=== PATIENT | male | born 1955 | race African-American/Black ===

== ENCOUNTER 2019-12-15 11:35 | Inpatient (IN) | payer MEDICARE, BC ==
[~2019-12-15] VITALS: Ht 182.9 cm; Wt 70.1 kg
[2019-12-15] MEDS: InsuLIN REG 1unit/0.01ml Soln (100units/ml) SC SCH
[2019-12-15] MEDS: ACCU-CHEK COMFORT CURVE STRIP VI SCH
[2019-12-15 12:44] LABS: Basophils # (auto) 0 10 ^3/uL (0-0.2); Eosinophils # (auto) 0 10 ^3/uL (0-0.8); Eosinophils % (auto) 0.5 % (0.0-7.0); Lymphocytes # (auto) 0.8 10 ^3/uL (0.4-5.4); Mean Corpuscular Hemoglobin 31.4 pg (28.0-32.0); Mean Corpuscular Hgb Conc. 31.4 g/dL (32.0-36.0); Monocytes # (auto) 0.2 10 ^3/uL (0-1.3)
[2019-12-15] MEDS ORDERED: SODIUM CHLORIDE 0.9% 1,000 ML IVB ONE (12:45)
[2019-12-15 12:46] LABS: Basophils % (auto) 0.3 % (0.0-2.0); Hematocrit 25.4 % (41.0-53.0); Lymphocytes % (auto) 10.2 % (10.0-50.0); Mean Corpuscular Volume 99.9 fL (80.0-100.0); Monocytes % (auto) 2.9 % (0.0-12.0); Neutrophils # (auto) 6.4 10 ^3/uL (1.6-8.6); Neutrophils % (auto) 86.1 % (37.0-80.0); Red Blood Cells 2.54 10^6/uL (4.5-5.90); White Blood Cell 7.4 10^3/uL (4.4-10.8)
[2019-12-15 12:50] LABS: Red Cell Distribution Width 24.6 % (11.8-14.3)
[2019-12-15 12:59] LABS: INR 2.04 (0.9-1.15); Partial Thromboplastin Time 42.4 sec (23.0-31.2)
[2019-12-15 13:04] LABS: Albumin 1.5 g/dL (3.4-5.0); Anion Gap 10 (5-15); Blood Urea Nitrogen 39 mg/dL (7-18); Carbon Dioxide 21 mmol/L (21-32); Chloride 120 mmol/L (98-107); Glucose 369 mg/dL (74-106); Magnesium 2.1 mg/dL (1.6-2.6); Potassium 3.8 mmol/L (3.5-5.1); Sodium 151 mmol/L (136-145)
[2019-12-15 13:08] LABS: Alanine Aminotransferase 47 U/L (16-61); Alkaline Phosphatase 643 U/L (45-117); Aspartate Aminotransferase 69 U/L (15-37); BUN/Creatinine Ratio 21.4; Bilirubin, Total 2.6 mg/dL (0.2-1.0); GFR African American 48 mL/min; GFR Non-African American 40 mL/min
[2019-12-15 13:24] LABS: Platelet Count (auto) 54 10^3/uL (140-450)
[2019-12-15 13:53] LABS: Urine Bacteria NONE SEEN /hpf (None Seen); Urine Blood 2+ /uL (Negative); Urine Hyaline Cast MOD /lpf (0 - 2); Urine Mucus FEW (None Seen); Urine WBC 16 /hpf (0 - 3)
[2019-12-15] MEDS ORDERED: NITROGLYCERIN 0.4 MG SL TAB SL PRN (15:45)
[2019-12-15] MEDS: SOD CHL 0.45% 1,000 ML IV SCH (16:45)
[2019-12-15] MEDS ORDERED: cefTRIAXone 1GM/50ML D5W 50 ML IV ONE (16:45)
[2019-12-15] MEDS ORDERED: FAMOTIDINE (10MG/ML) 2ML VL IV SCH (16:45)
[2019-12-15] MEDS ORDERED: DEXTROSE (50%) 50ML SYRG IV PRN (16:45)
[2019-12-15] MEDS: HYDROmorphone HCL 2 MG/ML VL IV PRN (19:36)
--- NOTE | 2019-12-15 23:03 | NUR ---
Telemetry admit from ER JUDITMATIAS admitted to Telemetry unit after SBAR received. Patient oriented to Joie Villagomez, primary RN, unit, room, bed, and unit policies regarding patient care and visiting hours. Patient now on continuous telemetry monitoring, tele box #70 and telemetry reading on arrival to unit is NSR 68. Patient placed on bedside oxygen, weighed by bedscale and encouraged to call if they need something. All questions and concerns addressed, patient verbalized understanding. Note:
[2019-12-15] MEDS: METOPROLOL TARTRATE 50 MG TAB PO SCH (23:36)
[2019-12-15] MEDS: MIRTAZAPINE 30 MG TAB PO SCH (23:36)
[2019-12-16] MEDS: ACCU-CHEK COMFORT CURVE STRIP VI SCH ×3 (00:01→08:15)
[2019-12-16] MEDS ORDERED: RIV20T PO (00:41)
[2019-12-16] MEDS ORDERED: SPIR25TA88 PO (00:41)
[2019-12-16] MEDS ORDERED: OXY5T PO (00:41)
[2019-12-16] MEDS ORDERED: SENN1TAB14 PO (00:41)
[2019-12-16] MEDS ORDERED: METO-159 PO (00:41)
[2019-12-16] MEDS ORDERED: OXY20CRT PO (00:41)
[2019-12-16] MEDS ORDERED: FURO1TAB33 PO (00:41)
[2019-12-16] MEDS ORDERED: ONDA-144 PO (00:41)
[2019-12-16] MEDS ORDERED: PANT40TA2 PO (00:41)
[2019-12-16] MEDS: SOD CHL 0.45% 1,000 ML IV SCH ×2 (00:45→08:45)
[2019-12-16] MEDS: InsuLIN REG 1unit/0.01ml Soln (100units/ml) SC SCH ×3 (04:00→08:15)
[2019-12-16 05:00] VITALS: BP 151/82
--- NOTE | 2019-12-16 06:25 | NUR ---
ZANDRA CALLED;UPDATED HER ON PATIENT'S STATUS; SHE WILL BE CALLING BACK AROUND 1 PM.
[2019-12-16 06:35] LABS: Basophils # (auto) 0 10 ^3/uL (0-0.2); Eosinophils # (auto) 0.2 10 ^3/uL (0-0.8); Monocytes # (auto) 0.3 10 ^3/uL (0-1.3); Neutrophils # (auto) 4.7 10 ^3/uL (1.6-8.6)
[2019-12-16 06:39] LABS: Eosinophils % (auto) 2.4 % (0.0-7.0); Hemoglobin 8.6 g/dL (13.5-17.5); Lymphocytes # (auto) 1.2 10 ^3/uL (0.4-5.4); Lymphocytes % (auto) 18.4 % (10.0-50.0); Mean Corpuscular Hemoglobin 31.7 pg (28.0-32.0); Mean Corpuscular Hgb Conc. 33.1 g/dL (32.0-36.0); Mean Corpuscular Volume 95.8 fL (80.0-100.0); Monocytes % (auto) 5.1 % (0.0-12.0); Neutrophils % (auto) 74.1 % (37.0-80.0); Nucleated Red Blood Cells % 1.1 %; Platelet Count (auto) 55 10^3/uL (140-450); Red Blood Cells 2.72 10^6/uL (4.5-5.90); White Blood Cell 6.3 10^3/uL (4.4-10.8)
[2019-12-16 06:42] LABS: Red Cell Distribution Width 24.1 % (11.8-14.3)
[2019-12-16 07:00] LABS: Albumin 1.8 g/dL (3.4-5.0); BUN/Creatinine Ratio 21.9; Bilirubin, Total 3.2 mg/dL (0.2-1.0); Calcium 7.7 mg/dL (8.5-10.1); Total Protein 5.4 g/dL (6.4-8.2)
[2019-12-16] MEDS: PANTOPRAZOLE 40 MG TAB PO SCH ×2 (07:10→09:20)
--- NOTE | 2019-12-16 07:20 | NUR ---
Opening Shift Note Assuming care of patient at this time. Patient is awake and alert. Patient denies pain. Patient shows no signs or symptoms of distress or shortness of breath. Bed is locked and lowered with side rails up x2. Instructed patient on the plan of care for today and to call for assistance as needed. Call light within reach. Will continue to round hourly and as needed.
[2019-12-16 07:23] LABS: Potassium 2.7 mmol/L (3.5-5.1)
--- NOTE | 2019-12-16 07:28 | NUR ---
Page to On-Call Hospitalist Page to regional geodetic advisor hospitalist regarding patient's critical potassium. Awaiting callback.
[2019-12-16] MEDS: cefTRIAXone 1GM/50ML D5W 50 ML IV SCH (09:20)
[2019-12-16 09:24] VITALS: BP 151/81
[2019-12-16] MEDS: oxyCODONE ER 20 MG TAB PO SCH ×3 (09:26→21:22)
[2019-12-16] MEDS: METOPROLOL TARTRATE 50 MG TAB PO SCH ×2 (09:41→21:22)
--- NOTE | 2019-12-16 09:42 | NUR ---
Call from Noreen, , called at this time. Updated on patient's status.
[2019-12-16] MEDS ORDERED: POTASSIUM CHL 20 Meq TABLET PO ONE (11:30)
[2019-12-16] MEDS: SOD CHL 0.45% WITH 20MEQ KCL 1,000 ML IV SCH ×2 (12:23→19:30)
[2019-12-16 12:39] VITALS: BP 150/89
--- NOTE | 2019-12-16 13:35 | NUR ---
Dr. Herrera call Spoke with Dr. Herrera at this time. Notified MD of patient's ammonia level, also notified him of patient's wanting to receive a phone call in order to discuss plan of care. MD states he will call and update .
--- NOTE | 2019-12-16 13:55 | NUR ---
Spoke to Dr. Herrera Call from Dr. Herrera at this time. Dr. Herrera has just finished speaking with on the phone. Dr. Herrera has told to call this RN and give information on oncology doctor in order to discuss care. Will await 's phone call and input number in a note.
--- NOTE | 2019-12-16 13:58 | NUR ---
Oncology/PCP information Spoke with Noreen, , at this time. Noreen states she has just spoken with Dr. Herrera on the phone, is calling to give information on patient's oncology and pcp. [facility] Dr. Car Almanzar Aspen Chong-PCP Dr. Sanford Trejo
--- NOTE | 2019-12-16 16:00 | NUR ---
Visitation Dr. Herrera states that he offered to have patient's visit but declined. Patient's is now calling asking to visit patient tomorrow. Notified to call in the morning to verify with MD and RN to see if she would be allowed to come and what time. verbalized understanding.
[2019-12-16 17:00] VITALS: BP 137/70
[2019-12-16] MEDS: RIVAROXABAN 20 MG TAB PO SCH (18:05)
--- NOTE | 2019-12-16 18:57 | NUR ---
Closing Shift Note Patient resting in bed. No distress noted. Will endorse care to the roofing superintendent RN.
--- NOTE | 2019-12-16 19:03 | NUR ---
Opening Shift Note Assumed care of patient, awake and alert, on phone with . No S/S of distress/SOB or pain. Bed in lowest locked position, side rails up x 2, call light within reach, bed alarm on. Instructed on POC and to call for assist PRN, will continue to monitor for changes Q1hr and PRN.
--- NOTE | 2019-12-16 21:00 | NUR ---
MD Marvin at nurse's station, MD aware of 's request to speak to MD prior to MD speaking to patient. Will continue care.
[2019-12-16] MEDS: MIRTAZAPINE 30 MG TAB PO SCH (21:23)
[2019-12-16 22:00] VITALS: BP 138/78
[2019-12-16] MEDS ORDERED: LORazepam 2MG/ML-1ML VIAL IV PRN (22:15)
[2019-12-17] MEDS: SOD CHL 0.45% WITH 20MEQ KCL 1,000 ML IV SCH ×3 (03:07→23:33)
[2019-12-17 05:00] VITALS: BP 146/86
--- NOTE | 2019-12-17 07:00 | NUR ---
Patient lying in bed, awake and alert. No s/s of distress. Call light within reach. Will endorse care to dayshift RN.
[2019-12-17 09:00] VITALS: BP 144/88
[2019-12-17] MEDS: oxyCODONE ER 20 MG TAB PO SCH ×2 (09:31→22:12)
[2019-12-17] MEDS: METOPROLOL TARTRATE 50 MG TAB PO SCH ×2 (09:32→22:11)
[2019-12-17] MEDS: cefTRIAXone 1GM/50ML D5W 50 ML IV SCH (09:32)
[2019-12-17] MEDS: PANTOPRAZOLE 40 MG TAB PO SCH (09:32)
--- NOTE | 2019-12-17 10:00 | NUR ---
was at bedside with patient and . The told that patient usually takes lasix and aldactone at home. put in the orders for patient to start it here , and specifically told me not to give them today to start both tomorrow morning. Pharmacy notified for the medications to start tomorrow morning.
[2019-12-17] MEDS ORDERED: ONDANSETRON HCL 4 MG/2 ML VIAL IV PRN (10:30)
[2019-12-17] MEDS ORDERED: SPIRONOLACTONE 25 MG TAB PO ONE (10:45)
[2019-12-17] MEDS ORDERED: FUROSEMIDE 20 MG TAB PO ONE (10:45)
[2019-12-17 13:00] VITALS: BP 150/80
--- NOTE | 2019-12-17 15:21 | NUR ---
EEG-ELECTROENCEPHALOGRAM COMPLETED AT BED SIDE @ 1507.
[2019-12-17 17:00] VITALS: BP 149/79
[2019-12-17] MEDS: RIVAROXABAN 20 MG TAB PO SCH (18:34)
[2019-12-17 18:38] LABS: Basophils # (auto) 0 10 ^3/uL (0-0.2); Eosinophils # (auto) 0.1 10 ^3/uL (0-0.8); Hemoglobin 8.3 g/dL (13.5-17.5); Lymphocytes # (auto) 1.2 10 ^3/uL (0.4-5.4); Monocytes # (auto) 0.3 10 ^3/uL (0-1.3)
[2019-12-17 18:40] LABS: Basophils % (auto) 0.6 % (0.0-2.0); Eosinophils % (auto) 3.6 % (0.0-7.0); Hematocrit 24.7 % (41.0-53.0); Lymphocytes % (auto) 33.1 % (10.0-50.0); Mean Corpuscular Hgb Conc. 33.5 g/dL (32.0-36.0); Mean Corpuscular Volume 95.4 fL (80.0-100.0); Monocytes % (auto) 8.8 % (0.0-12.0); Neutrophils # (auto) 1.9 10 ^3/uL (1.6-8.6); Neutrophils % (auto) 53.9 % (37.0-80.0); Nucleated Red Blood Cells % 1.8 %; Platelet Count (auto) 74 10^3/uL (140-450); Red Blood Cells 2.59 10^6/uL (4.5-5.90); White Blood Cell 3.6 10^3/uL (4.4-10.8)
[2019-12-17 18:43] LABS: Albumin 1.6 g/dL (3.4-5.0); Calcium 7.3 mg/dL (8.5-10.1); Potassium 3.8 mmol/L (3.5-5.1)
[2019-12-17 18:47] LABS: BUN/Creatinine Ratio 22.6; Bilirubin, Total 3.4 mg/dL (0.2-1.0); Red Cell Distribution Width 24.9 % (11.8-14.3); Total Protein 5.2 g/dL (6.4-8.2)
--- NOTE | 2019-12-17 19:30 | NUR ---
Opening Shift Note Assumed care of patient after receiving report. Patient is awake and alert with no S/S of distress/SOB or pain. Call light within reach, bed in lowest locked position x2 side rails up for safety. Instructed on POC and to call for assist PRN, will continue to monitor for changes Q1hr and PRN.
[2019-12-17 22:00] VITALS: BP 144/84
[2019-12-17] MEDS: MIRTAZAPINE 30 MG TAB PO SCH (22:12)
[2019-12-18 05:00] VITALS: BP 159/88
[2019-12-18] MEDS: SOD CHL 0.45% WITH 20MEQ KCL 1,000 ML IV SCH ×2 (05:15→11:30)
--- NOTE | 2019-12-18 05:33 | NUR ---
Scheduled 03:30 IVF fluid given at this time. Held at scheduled time due to current bag still running.
--- NOTE | 2019-12-18 06:03 | NUR ---
BP reassessed was BP 159/88 HR 68. Reassessed by RN BP 142/79 and HR 65.
[2019-12-18 06:05] VITALS: BP 142/79
[2019-12-18 06:09] LABS: Basophils # (auto) 0 10 ^3/uL (0-0.2); Basophils % (auto) 0.7 % (0.0-2.0); Eosinophils # (auto) 0.1 10 ^3/uL (0-0.8); Eosinophils % (auto) 4.6 % (0.0-7.0); Hematocrit 25.3 % (41.0-53.0); Hemoglobin 8.4 g/dL (13.5-17.5); Lymphocytes % (auto) 34.3 % (10.0-50.0); Mean Corpuscular Hemoglobin 32.2 pg (28.0-32.0); Mean Corpuscular Hgb Conc. 33.3 g/dL (32.0-36.0); Mean Corpuscular Volume 96.7 fL (80.0-100.0); Monocytes # (auto) 0.4 10 ^3/uL (0-1.3); Monocytes % (auto) 12.4 % (0.0-12.0); Neutrophils # (auto) 1.4 10 ^3/uL (1.6-8.6); Nucleated Red Blood Cells % 2.5 %; Platelet Count (auto) 90 10^3/uL (140-450); Red Blood Cells 2.62 10^6/uL (4.5-5.90); White Blood Cell 2.9 10^3/uL (4.4-10.8)
[2019-12-18 06:12] LABS: Red Cell Distribution Width 25.4 % (11.8-14.3)
[2019-12-18 06:29] LABS: Albumin 1.6 g/dL (3.4-5.0); Calcium 7.4 mg/dL (8.5-10.1); Potassium 3.8 mmol/L (3.5-5.1)
[2019-12-18 06:31] LABS: BUN/Creatinine Ratio 21.3
[2019-12-18 06:34] LABS: Bilirubin, Total 3.7 mg/dL (0.2-1.0); Total Protein 5.1 g/dL (6.4-8.2)
[2019-12-18] MEDS: HYDROmorphone HCL 2 MG/ML VL IV PRN (08:50)
[2019-12-18] MEDS: cefTRIAXone 1GM/50ML D5W 50 ML IV SCH (08:53)
[2019-12-18 09:00] VITALS: BP 143/90
[2019-12-18] MEDS: METOPROLOL TARTRATE 50 MG TAB PO SCH (09:08)
[2019-12-18] MEDS: PANTOPRAZOLE 40 MG TAB PO SCH (09:08)
[2019-12-18] MEDS ORDERED: SPIRONOLACTONE 25 MG TAB PO SCH (10:00)
[2019-12-18] MEDS ORDERED: FUROSEMIDE 20 MG TAB PO SCH (10:00)
[2019-12-18] MEDS: oxyCODONE ER 20 MG TAB PO SCH (11:06)
[2019-12-18 13:00] VITALS: BP 146/80
--- NOTE | 2019-12-18 13:37 | NUR ---
Pt and spoke to who told them that patient will be discharge today and that patient can follow up at [facility] with patient's oncologist. also told them that he will discharged patient with a prescription for levaquin because patient had a UTI and that patient can resume taking all home medications including xarelto. Patient and verbalized understanding.
--- NOTE | 2019-12-18 13:50 | NUR ---
assessment Patient is a 64 year old male who is alert and oriented. Prior to admission patient lived home with his and family and functioned independently. Patient informed me he is able to care for his own ADLs. Per patient he will return home to his prior living arrangements post discharge and oNreen his will transport him home. Patient informed me he has Pancreatic cancer and is on chemo. Patient see's oncologist at [facility]. Patients next chemo treatment is on TuesdayDec 20. Patient has a fww and a cane for home use. Patient is on service with [facility] [employer]. Patient will need to resume home health on discharge and follow up with Oncologist. I informed patient he has a right to speak to a child protective services social worker regarding all care. I informed patient he has a right to participate in any and all discharge planning. Patient has a POA and advanced directive. Patient verbalized understanding and agreed to discharge plan home. Addendum: 12/18/19 at 1406 by Farideh BLOOM Amended: Links added.
--- NOTE | 2019-12-18 16:06 | NUR ---
Discharge instructions given to patient and as ordered , Including education on all medications and tests the patient had done . Patient instructed to follow up with his oncologist at [facility] , the patient states that he already has an appointment made for Tuesday. Patient has a PICC Line that was placed prior to admission to [facility] for rehab medicine , it was placed at [facility] for chemotherapy.I gave patient instructions on PICC line care.I also gave them the prescription that they said they will filled on their way home.All questions and concerns addressed. Patient verbalized understanding. Medication reconciliation form completed and copy given to patient. IV removed with catheter intact, pressure dressing applied. Telemetry unit returned to ICU. Patient taken to vehicle via wheelchair with all personal belongings, accompanied by staff and family member. No distress noted at time of departure.
== END 2019-12-18 16:00 | disposition home or self-care (01) | DRG 91 ==
LOC: EDBD 11:35 → ER 11:35 → UNDOADMIN 11:36 → TELE 11:36 → TELE-WESTW 22:08
PROVIDERS: ADMIT Internal Medicine; ATTEND Family Medicine
DX: G92 Toxic encephalopathy (principal); E43 Unspecified severe protein-calorie malnutrition; C25.9 Malignant neoplasm of pancreas, unspecified; C78.7 Secondary malignant neoplasm of liver and intrahepatic bile duct; N17.9 Acute kidney failure, unspecified; I82.403 Acute embolism and thrombosis of unspecified deep veins of lower extremity, bilateral; N39.0 Urinary tract infection, site not specified; C34.90 Malignant neoplasm of unspecified part of unspecified bronchus or lung; C79.31 Secondary malignant neoplasm of brain; E87.0 Hyperosmolality and hypernatremia; E86.0 Dehydration; D69.6 Thrombocytopenia, unspecified; D63.8 Anemia in other chronic diseases classified elsewhere; I48.91 Unspecified atrial fibrillation; N20.0 Calculus of kidney; E87.6 Hypokalemia; I10 Essential (primary) hypertension; E78.5 Hyperlipidemia, unspecified; E11.65 Type 2 diabetes mellitus with hyperglycemia; E11.21 Type 2 diabetes mellitus with diabetic nephropathy; E11.40 Type 2 diabetes mellitus with diabetic neuropathy, unspecified; T40.605A Adverse effect of unspecified narcotics, initial encounter; E78.00 Pure hypercholesterolemia, unspecified; Z88.5 Allergy status to narcotic agent; Y92.89 Other specified places as the place of occurrence of the external cause; Z79.01 Long term (current) use of anticoagulants; Z85.07 Personal history of malignant neoplasm of pancreas; Z87.442 Personal history of urinary calculi; Z85.118 Personal history of other malignant neoplasm of bronchus and lung; Z86.73 Personal history of transient ischemic attack (TIA), and cerebral infarction without residual deficits
CPT/HCPCS: 36415; 70450; 71045; 74176; 80053; 81001; 82140; 82962; 83036; 83735; 84484; 85025; 85610; 85652; 85730; 87081; 87086; 93005; 93970; 95819; 96361; 96374; G0378; J0696

== ENCOUNTER 2019-12-21 00:20 | Inpatient (IN) | payer MEDICARE, BC ==
[~2019-12-21] VITALS: Ht 182.9 cm; Wt 81.6 kg
[~2019-12-21 00:20] MED LIST: FURO1TAB33 PO; METO-159 PO; ONDA-144 PO; OXY20CRT PO; OXY5T PO; PANT40TA2 PO; RIV20T PO; SENN1TAB14 PO; SPIR25TA88 PO
[2019-12-21] MEDS ORDERED: AMIODARONE HCL (50 MG/ ML) 3 ML VIAL IV ONE (00:23)
[2019-12-21] MEDS ORDERED: MIDAZOLAM DRIP 50 mg/50mL 50 ML IV ONE (00:27)
[2019-12-21 01:40] LABS: Albumin 1.6 g/dL (3.4-5.0); Calcium 7.8 mg/dL (8.5-10.1); Potassium 4.5 mmol/L (3.5-5.1)
[2019-12-21 01:45] LABS: BUN/Creatinine Ratio 12.9
[2019-12-21 01:47] LABS: Urine Bacteria FEW /hpf (None Seen); Urine Blood 2+ /uL (Negative); Urine Hyaline Cast MANY /lpf (0 - 2); Urine Mucus FEW (None Seen); Urine Specific Gravity 1.013 (1.001-1.035); Urine WBC 1 /hpf (0 - 3)
[2019-12-21 01:48] VITALS: BP 135/69
[2019-12-21 01:51] VITALS: BP 82/44
[2019-12-21 01:51] LABS: Alcohol, Urine < 3.0 mg/dL (0-10); Amphetamine Screen, Urine NEGATIVE (NEGATIVE); Barbiturate Scree,Urine NEGATIVE (NEGATIVE); Benzodiazephine Screen, Urine NEGATIVE (NEGATIVE); Cannabinoid Screen, Urine NEGATIVE (NEGATIVE); Cocaine Screen, Urine NEGATIVE (NEGATIVE); Opiate Scree,Urine POSITIVE (NEGATIVE); Phencyclidine Screen, Urine NEGATIVE (NEGATIVE)
[2019-12-21 01:51] LABS: Bilirubin, Total 2.8 mg/dL (0.2-1.0); Total Protein 5.3 g/dL (6.4-8.2)
[2019-12-21 01:58] LABS: Hematocrit 26.9 % (41.0-53.0); Hemoglobin 8.2 g/dL (13.5-17.5); Mean Corpuscular Hemoglobin 32.1 pg (28.0-32.0); Mean Corpuscular Hgb Conc. 30.5 g/dL (32.0-36.0); Mean Corpuscular Volume 105.2 fL (80.0-100.0); Platelet Count (auto) 270 10^3/uL (140-450); Red Blood Cells 2.56 10^6/uL (4.5-5.90); White Blood Cell 5.9 10^3/uL (4.4-10.8)
[2019-12-21 02:01] LABS: Basophils % (manual) 0 (0.0-2.0); Blast Cells 0; Promyelocytes % 0; Reactive Lymphocytes 0
[2019-12-21] MEDS ORDERED: SODIUM CHLORIDE 0.9% 1,000 ML IV ONE (02:15)
[2019-12-21] MEDS ORDERED: NOREPINEPHRINE 8 MG/250ML KIT 250 ML IV SCH (02:30)
[2019-12-21 03:06] LABS: Band Neutrophils % (manual) 7; Eosinophils % (manual) 3 (0-7); Lymphocytes % (manual) 72 (10.0-50.0); Metamyelocytes % 2; Monocytes % (manual) 6 (0-12); Myelocytes % 1
[2019-12-21 04:17] VITALS: BP 87/53
[2019-12-21] MEDS ORDERED: ACETAMINOPHEN 325 MG TAB PO PRN (04:30)
[2019-12-21] MEDS ORDERED: DOCUSATE SOD 100 MG CAP PO PRN (04:30)
[2019-12-21] MEDS ORDERED: ONDANSETRON HCL 4 MG/2 ML VIAL IV PRN (04:30)
[2019-12-21] MEDS ORDERED: MORPHINE SULF INJ 2 MG/ML SYRINGE 1ML IV PRN (04:30)
[2019-12-21] MEDS ORDERED: HYDROcodone-ACET 5/325MG TAB PO PRN (04:30)
[2019-12-21] MEDS ORDERED: SODIUM CHLORIDE 0.9% 1,000 ML IV SCH (04:30)
[2019-12-21] MEDS ORDERED: NITROGLYCERIN 0.4 MG SL TAB SL PRN (04:30)
[2019-12-21] MEDS ORDERED: MORPHINE SULFATE 4 MG/ML SYR/VIAL IV PRN (04:30)
[2019-12-21 05:46] VITALS: BP 91/60
--- NOTE | 2019-12-21 05:59 | NUR ---
Respiratory note: DECREASED VT TO [address] POST-AB[address] MIRANDA.
[2019-12-21] MEDS ORDERED: HEPARIN SODIUM (PORCINE) 5000 UNITS/ML 1ML VIAL SC SCH (06:00)
[2019-12-21] MEDS ORDERED: DEXTROSE (50%) 50ML SYRG IV PRN (06:30)
[2019-12-21] MEDS ORDERED: ACCU-CHEK COMFORT CURVE STRIP VI SCH (07:00)
[2019-12-21] MEDS ORDERED: InsuLIN REG 1unit/0.01ml Soln (100units/ml) SC SCH (07:00)
[2019-12-21] MEDS ORDERED: SODIUM BICARBONATE 8.4 % INJ 50ML VIAL IV ONE ×2 (07:23→08:34)
[2019-12-21] MEDS ORDERED: ROCURONIUM BROMIDE 1,000 MG in D5W 5% 150 ML IV SCH (08:00)
[2019-12-21] MEDS ORDERED: PANTOPRAZOLE 40mg/50ML NS AE 50 ML IV SCH (08:15)
[2019-12-21] MEDS ORDERED: EPINEPHrine HCL 250 ML IV ONE (08:28)
[2019-12-21 08:30] VITALS: BP 91/60
[2019-12-21] MEDS ORDERED: EPINEPHrine HCL 250 ML IV SCH (08:30)
[2019-12-21] MEDS ORDERED: PHENYLEPHRINE IV 250 ML IV ONE (08:43)
[2019-12-21] MEDS ORDERED: DOPamine 1600MCG/ML D5W 250 ML IV SCH (08:45)
[2019-12-21] MEDS ORDERED: PHENYLEPHRINE IV 250 ML IV SCH (08:45)
[2019-12-21] MEDS ORDERED: EPINEPHrine HCL 1 MG/10 ML SYRG ONE ×2 (08:49→09:13)
[2019-12-21 08:55] VITALS: BP 66/34
[2019-12-21] MEDS ORDERED: EPINEPHrine HCL 1 MG/10 ML SYRG IV ONE (13:59)
[2019-12-21] MEDS ORDERED: CALCIUM CHLOR(10%) 100MG/ML 10ML SYRINGE IV ONE (13:59)
[2019-12-21] MEDS ORDERED: SODIUM BICARBONATE 8.4% INJ 50ML SYRINGE IV ONE (13:59)
[2019-12-21] MEDS ORDERED: DOPamine 1600mCg/ml 400MG/250ml NSorD5 KIT/BAG IV ONE (13:59)
== END 2019-12-21 10:20 | disposition expired ==
LOC: EDUNIT# 00:20 → EDBD 00:20 → ER 00:22 → UNDOADMIN 00:23 → TELE 00:23 → ICU WEST 07:29 → TELE 07:29 → ER 09:25
PROVIDERS: ADMIT Nurse Practitioner Family; ATTEND Nurse Practitioner Family
PROC: 0T9B70Z Drainage of Bladder with Drainage Device, Via Natural or Artificial Opening (ICD-10-PCS; principal; 2019-12-21)
PROC: 5A1935Z Respiratory Ventilation, Less than 24 Consecutive Hours (ICD-10-PCS; 2019-12-21)
PROC: 0BH17EZ Insertion of Endotracheal Airway into Trachea, Via Natural or Artificial Opening (ICD-10-PCS; 2019-12-21)
PROC: 02HV33Z Insertion of Infusion Device into Superior Vena Cava, Percutaneous Approach (ICD-10-PCS; 2019-12-21)
DX: I21.9 Acute myocardial infarction, unspecified (principal); J96.00 Acute respiratory failure, unspecified whether with hypoxia or hypercapnia; K72.01 Acute and subacute hepatic failure with coma; G93.41 Metabolic encephalopathy; E87.2 Acidosis; N17.9 Acute kidney failure, unspecified; J90 Pleural effusion, not elsewhere classified; C25.9 Malignant neoplasm of pancreas, unspecified; C78.7 Secondary malignant neoplasm of liver and intrahepatic bile duct; I46.9 Cardiac arrest, cause unspecified; R79.89 Other specified abnormal findings of blood chemistry; E87.8 Other disorders of electrolyte and fluid balance, not elsewhere classified; E86.0 Dehydration; D63.8 Anemia in other chronic diseases classified elsewhere; I95.9 Hypotension, unspecified; E11.9 Type 2 diabetes mellitus without complications; Z88.6 Allergy status to analgesic agent
CPT/HCPCS: 36415; 36600; 71045; 80053; 80307; 81001; 82805; 82962; 84484; 85007; 85027; 87040; 87070; 87077; 87186; 87205; 92950; 93005; 94002; 94003; 96361; 96365; 96368; 96375; G0378; J0171; J2250; J7060